=== PATIENT | female | born 1990 | race Caucasian/White ===

== ENCOUNTER 2019-09-12 20:57 | Inpatient (IN) | payer OTHER ==
[~2019-09-12] VITALS: Ht 167.6 cm; Wt 105.7 kg
[2019-09-13] MEDS ORDERED: PRENATAL PLUS1 EAC1 PO (12:50)
== END 2019-09-16 14:35 | disposition home or self-care (01) | DRG 788 ==
LOC: OBS/DEL 20:57 → LDR 09-13 11:31 → OB/GYN 09-13 11:31 → OBS/DEL 09-13 11:31 → LDR 09-13 13:09 → OB/GYN 09-14 02:14
PROVIDERS: ADMIT Specialist
PROC: 10D00Z1 Extraction of Products of Conception, Low, Open Approach (ICD-10-PCS; principal; 2019-09-14)
PROC: 4A1HXFZ Monitoring of Products of Conception, Cardiac Rhythm, External Approach (ICD-10-PCS; 2019-09-14)
DX: O62.1 Secondary uterine inertia (principal); O36.8130 Decreased fetal movements, third trimester, not applicable or unspecified; Z37.0 Single live birth; Z3A.38 38 weeks gestation of pregnancy